=== PATIENT | female | born 1990 | race African-American/Black ===

== ENCOUNTER 2017-05-10 19:12 | Inpatient (IN) | payer MEDICAID ==
[2017-05-10] MEDS ORDERED: PITOCin/NS 20 UNIT/1000ML DRIP 20,000 MILLIUNITS/1,000 ML BAG IV ONE (19:52)
--- NOTE | 2017-05-10 20:13 | History and Physical Report ---
History of Present Illness Date of examination: 05/10/17 Date of admission: 05/10/17 19:42 Chief complaint: Labor History of present illness: Pt is a 26yo WF EDC 05/15/17; EGA 39 2/7 weeks presents to L&D complaining of RUC's q 3-4 mins, SROM meconium fluid and Cx 10/100/V/-2 She received care at [facility] since 7 weeks and course has been unremarkable except for UTI, BV and + Chlamydia treated in . records are available and GBS is Positive. 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 Family/Genetic History: diabetes Social history: no significant social history, single - Obstetrical History Expected Date of Delivery: 05/15/17 Actual Gestation: 39 Week(s) 2 Day(s) : 4 Medications and Allergies Allergies Allergy/AdvReac Type Severity Reaction Status Date / Time No Known Allergies Allergy Verified 05/22/14 02:39 Home Medications Medication Instructions Recorded Confirmed Last Taken Type No Known Home Medications [No 05/22/14 05/22/14 Unknown History Reported Home Medications] Review of Systems All systems: negative - Physical Exam Breasts: Positive: deferred Cardiovascular: Regular rate Lungs: Positive: Clear to auscultation Abdomen: Positive: normal appearance Genitourinary (Female): Positive: normal external genitalia Uterus: Positive: enlarged Extremities: Positive: normal - Obstetrical FHR: category 1 Uterine Contraction Monitor Mode: External Cervical Dilatation: 10 Cervical Effacement Percentage: 100 station: -2 Uterine Contraction Pattern: Regular Uterine Tone Measurement Phase: Contraction Uterine Contraction Intensity: Strong/Firm Results All other labs normal. Assessment and Plan - Patient Problems (1) 39 weeks gestation of Onset Date: 05/10/17 Current Visit: Yes Status: Acute Plan to address problem: A: IUP @ 39 2/7 weeks in labor +GBS P: Admit to L&D for imminent delivery Not enough time for IV Ampicillin
[2017-05-10] MEDS: PITOCin/NS 20 UNIT/1000ML DRIP 20 UNITS/1,000 ML BAG IV SCH ×2 (20:15→21:22)
[2017-05-10] MEDS ORDERED: MINERAL OIL PO PRN (20:19)
[2017-05-10] MEDS ORDERED: ePHEDrine SULFATE IV PRN (20:19)
[2017-05-10] MEDS ORDERED: BRETHINE IVP PRN (20:19)
[2017-05-10] MEDS ORDERED: XYLOCAINE 2% INFILTRATI ONE (20:19)
[2017-05-10] MEDS ORDERED: BRETHINE SUB-Q PRN (20:19)
--- NOTE | 2017-05-10 20:19 | Procedure Note ---
OB Delivery Note - Delivery Date of Delivery: 05/10/17 Surgeon: RITA JONES Estimated blood loss: 100cc - Vaginal Delivery presentation: vertex Delivery position: OA Intrapartum events: meconium, precipitous labor- <3hr Delivery induction: none Delivery augmentation: rupture of membranes Delivery monitor: external FHT, external uterine Route of delivery: Delivery placenta: spontaneous Delivery cord: 3 umbilical vessels Episiotomy: none Delivery laceration: none Anesthesia: none Delivery comments: delivered OA and placed on Mom's chest for [id number] bonding and delayed cord clamping. Peds/RT in attendance. - A at 1 minute: 8 at 5 minutes: 9 Gender: Female (3265gms)
[2017-05-10] MEDS ORDERED: BENADRYL PO PRN (20:25)
[2017-05-10] MEDS ORDERED: MILK OF MAGNESIA PO PRN (20:25)
[2017-05-10] MEDS ORDERED: LANSINOH TP PRN (20:25)
[2017-05-10] MEDS ORDERED: PHENERGAN PR PRN (20:25)
[2017-05-10] MEDS ORDERED: DULCOLAX PR PRN (20:25)
[2017-05-10] MEDS ORDERED: ZOFRAN IV PRN (20:25)
[2017-05-10] MEDS ORDERED: TYLENOL PO PRN (20:25)
[2017-05-10] MEDS ORDERED: NORCO 5/325 PO PRN (20:25)
[2017-05-10] MEDS ORDERED: TUCKS PAD TP PRN (20:25)
[2017-05-10] MEDS ORDERED: PHENERGAN PO PRN (20:25)
[2017-05-10 20:56] LABS: Hematocrit 38.1 % (30.3-42.9); Hemoglobin 12.8 gm/dl (10.1-14.3); Mean Corpuscular HGB Conc 34 % (30-34); Mean Corpuscular Hemoglobin 29 pg (28-32); Mean Corpuscular Volume 86 fl (79-97); Platelet Count 200 K/mm3 (140-440); Red Blood Count 4.45 M/mm3 (3.65-5.03); Red Cell Distribution Width 12.8 % (13.2-15.2); White Blood Count 10.1 K/mm3 (4.5-11.0)
[2017-05-10] MEDS ORDERED: LACTATED RINGERS 1,000 ML IV SCH (21:00)
[2017-05-10] MEDS ORDERED: SODIUM CHLORIDE FLUSH SYRINGE 10 ML IV SCH (21:00)
[2017-05-10] MEDS ORDERED: PITOCin/NS 30 UNIT/500ML 30 UNITS/500 ML BAG IV SCH (21:00)
[2017-05-10] MEDS ORDERED: PITOCin/NS 20 UNIT/1000ML DRIP 20 UNITS/1,000 ML BAG IV SCH (21:00)
[2017-05-10] MEDS ORDERED: POLYCILLIN/NS 2 GM/100 ML 2 GM/100 ML BAG IV ONE (21:00)
[2017-05-10] MEDS: MOTRIN PO SCH (21:57)
[2017-05-10] MEDS: COLACE PO SCH (23:15)
[2017-05-10] MEDS: FEOSOL PO SCH (23:15)
[2017-05-11] MEDS ORDERED: POLYCILLIN/NS 1 GM/50 ML 1 GM/50 ML BAG IV SCH (00:21)
[2017-05-11] MEDS: MOTRIN PO SCH ×3 (05:51→18:03)
[2017-05-11] MEDS ORDERED: BOOSTRIX IM ONE (06:00)
[2017-05-11 08:55] LABS: Hematocrit 38.7 % (30.3-42.9); Hemoglobin 12.7 gm/dl (10.1-14.3)
--- NOTE | 2017-05-11 10:22 | Progress Note ---
Assessment and Plan A: PP Day #1 Stable P: Follow Routine orders Depo Provera prior to discharge D/C home in the AM RTO in 6 Weeks Subjective - Subjective Date of service: 05/11/17 Patient reports: appetite normal, voiding normally, pain well controlled, flatus , ambulating normally [place]: doing well Objective - Vital Signs Latest vital signs: Vital Signs Temp Pulse Resp BP BP Pulse Ox 05/11/17 07:29 98.0 F 61 107/58 97 05/11/17 04:30 98.4 F 72 18 104/52 05/11/17 01:00 98.6 F 71 18 112/69 05/10/17 22:30 98.6 F 77 16 116/58 05/10/17 22:04 62 98 05/10/17 22:03 65 108/70 05/10/17 21:59 72 97 05/10/17 21:57 18 05/10/17 21:54 73 98 05/10/17 21:50 98.8 F 18 05/10/17 21:49 73 98 05/10/17 21:48 70 105/63 05/10/17 21:44 67 98 05/10/17 21:39 73 98 05/10/17 21:34 71 96/54 98 05/10/17 21:29 74 99 05/10/17 21:24 79 98 05/10/17 21:19 76 97 05/10/17 21:18 78 106/69 05/10/17 21:14 71 97 05/10/17 21:09 86 98 05/10/17 21:04 67 97 05/10/17 21:03 68 102/62 05/10/17 20:59 69 99 05/10/17 20:54 96.4 F L 69 14 102/62 97 05/10/17 20:53 73 93 05/10/17 20:49 79 96 05/10/17 20:48 83 110/68 05/10/17 20:44 74 98 05/10/17 20:39 74 99 05/10/17 20:34 72 97 05/10/17 20:33 73 101/78 Intake and Output 05/10/17 05/11/17 05/11/17 22:59 06:59 14:59 Intake Total 439.583 300 Output Total 800 1400 Balance 439.583 -500 -1400 Intake: IV 139.583 PITOCin/NS 20 UNIT/1000ML 139.583 DRIP 20 units In 1,000 ml @ 125 mls/hr IV DIRECT RICCARDO Rx#:[id number] Intake, Free Water 300 300 Output: Urine 800 1400 Void 800 1400 Other: Total, Output Amount 800 1400 # Voids Void 1 # Bowel Movements 0 Weight 90.718 kg Estimated Blood Loss 100 - Exam Breasts: Present: normal Cardiovascular: Present: Regular rate Lungs: Present: Clear to auscultation, Normal air movement Abdomen: Present: normal appearance, soft, normal bowel sounds Uterus: Present: normal, firm, fundal height below umbilicus Extremities: Present: normal - Labs Labs: Abnormal lab results 05/10/17 Range/Units 20:10 RDW 12.8 L (13.2-15.2) %
--- NOTE | 2017-05-11 10:25 | Discharge Summary ---
Providers - Providers Date of Admission: 05/10/17 19:42 Date of discharge: 05/12/17 Attending physician: ERWIN SPRAGUE MD Primary care physician: ERWIN SPRAGUE MD Hospitalization Reason for admission: active labor Delivery: Episiotomy: none Laceration: none Other procedures: none complications: none Discharge diagnosis: IUP at term delivered [place] baby: female Condition at discharge: Good Disposition: DC-01 TO HOME OR SELFCARE Plan - Provider Discharge Summary Activity: routine, no sex for 6 weeks, no heavy lifting 4 weeks, no strenuous exercise Diet: routine Instructions: routine Additional instructions: [] Smoking cessation referral if applicable(refer to patient education folder for contact #) [] Refer to [facility] [address] Booklet Call your doctor immediately for: * Fever > 100.5 * Heavy vaginal bleeding ( >1 pad per hour) * Severe persistent headache * Shortness of breath * Reddened, hot, painful area to leg or breast * Drainage or odor from incision. * Keep incision clean and dry at all times and follow doctor's instructions regarding bathing/showering - Follow up plan Follow up: ERWIN SPRAGUE MD [Primary Care Provider] - 6 Weeks
[2017-05-11] MEDS ORDERED: DEPO-PROVERA (CONTRACEPTION) IM NR (11:00)
[2017-05-11] MEDS: PRENATAL VITAMIN PO SCH (12:11)
[2017-05-11] MEDS: FEOSOL PO SCH (12:11)
[2017-05-11] MEDS: COLACE PO SCH (12:12)
[2017-05-11] MEDS ORDERED: M-M-R II VACCINE SUB-Q ONE (20:25)
[2017-05-12] MEDS: MOTRIN PO SCH ×4 (00:08→18:48)
[2017-05-12] MEDS: COLACE PO SCH ×2 (03:52→12:24)
[2017-05-12] MEDS: FEOSOL PO SCH ×2 (03:52→12:24)
[2017-05-12] MEDS ORDERED: DEPO-PROVERA (CONTRACEPTION) IM NR (11:30)
[2017-05-12] MEDS: PRENATAL VITAMIN PO SCH (12:25)
[2017-05-12 18:47] VITALS: BP 115/58
== END 2017-05-12 20:30 | disposition home or self-care (01) | DRG 774 ==
LOC: TRG 19:12 → LD 19:42 → OB 22:36
PROVIDERS: ADMIT Obstetrics & Gynecology; ATTEND Obstetrics & Gynecology
PROC: 10E0XZZ Delivery of Products of Conception, External Approach (ICD-10-PCS; principal; 2017-05-10)
PROC: 3E0234Z Introduction of Serum, Toxoid and Vaccine into Muscle, Percutaneous Approach (ICD-10-PCS; 2017-05-11)
DX: O62.3 Precipitate labor (principal); O98.82 Other maternal infectious and parasitic diseases complicating childbirth; O77.0 Labor and delivery complicated by meconium in amniotic fluid; O99.824 Streptococcus B carrier state complicating childbirth; Z3A.39 39 weeks gestation of pregnancy; Z37.0 Single live birth; Z23 Encounter for immunization; Z83.3 Family history of diabetes mellitus
CPT/HCPCS: 36415; 85014; 85018; 85027; 86592; 86850; 86900; 86901; 99211; G0463; J1050; J2590